=== PATIENT | male | born 1960 | race Caucasian/White ===

== ENCOUNTER 2023-07-02 14:21 | Emergency (ER) | payer OTHER, SELFPAY ==
[2023-07-02 14:26] VITALS: BP 128/71
[2023-07-02 14:39] LABS: % Basophils 0.4 % (0-2); % Eosinophils 2.3 % (0-6); % Immature Granulocytes 0.2 % (0-0.5); % Lymphocytes 31.5 % (20.5-51.1); % Monocytes 7.4 % (1.7-9.3); % Neutrophils 58.2 % (42.2-75.2); Absolute Eosinophils 0.1 10^3/uL (0-0.7); Absolute Lymphocytes 1.5 10^3/uL (1.2-3.4); Absolute Monocytes 0.4 10^3/uL (0.1-0.6); Absolute Neutrophils 2.7 10^3/uL (1.4-6.5); Hematocrit 41.8 % (39.0-52.0); Hemoglobin 15.1 g/dL (13.0-18.0); Mean Corp Hgb Conc. 36.1 g/dL (33.0-37.0); Mean Corpuscular Volume 82.9 fL (80.0-94.0); Nucleated Red Blood Cells % 0 % (-); Platelet Count 169 10^3/uL (130-400); Red Blood Cell Count 5.04 10^6/uL (4.70-6.10); Red Cell Dist. Width 12.3 % (11.5-14.5); White Blood Cell Count 4.7 10^3/uL (4.8-10.8)
[2023-07-02 14:52] LABS: ALT (SGPT) 33 U/L (0-50); AST (SGOT) 29 U/L (17-59); Albumin 4.3 g/dl (3.5-5.0); Alkaline Phosphatase 68 U/L (38-126); Blood Urea Nitrogen 23 mg/dl (9-20); Calcium 9.2 mg/dl (8.4-10.2); Carbon Dioxide 27 mmol/L (22-30); Chloride 102 mmol/L (98-107); Glucose 150 mg/dl (70-99); Sodium 136 mmol/L (135-145); Total Bilirubin 0.7 mg/dl (0.2-1.3); eGFR > 60.00
[2023-07-02 15:04] LABS: Troponin I < 0.012 ng/ml
--- NOTE | 2023-07-02 15:49 | ED.GENMED ---
History of Present Illness
General
Chief Complaint: Chest Problem
Time Seen by Provider: 07/02/23 15:34
Travel History
Have you had any contact with someone who has COVID-19?: No
Do you have any symptoms of coronavirus? Fever > 100 degrees, chills, cough, shortness of breath, sore throat, loss of taste or smell, muscle aches, or headache?: No
History of Present Illness
History of Present Illness:
62-year-old male with history of igr-nsraydr-ralxlefge diabetes admission presents to the emergency department for evaluation of intermittent left-sided chest tightness radiating to the left arm for 5 days. He states he notices the symptoms more at
nighttime however the symptoms do appear to be random and unprovoked. No clear exertional or positional component to the pain is nonpleuritic. No pain currently. Denies any fever, chills, or sweats. No coughing.
Past History
Past History
ED Past Medical History: Cancer (Non-Hodgkin's lymphoma), NIDDM and Other (Neuropathy both lower extremities)
ED Past Surgical History: Other (sinus surgery)
Social History
Tobacco: Former smoker
Alcohol: None
Drug: None
Personal:
Living: with family
Employment: Employed (sales)
Review of Systems
Review of Systems
Allergies reviewed?: Yes
All Other Systems: ROS reviewed and negative except as documented in HPI and ROS
Phy Exam
Physical Exam
Physical Exam:
GEN: Well appearing, NAD, WDWN
HEENT: Oral mucosa moist, no scleral icterus
Cardiac: Regular rate and rhythm, no murmurs
Lung: No respiratory distress, no tachypnea, lungs clear to auscultation bilaterally
MSK: No gross deformity or injuries
Skin: Good color, no pallor or jaundice, no rashes
Neuro: AO x3, moves all extremities freely
Psych: Calm, cooperative
Course
Orders/Labs/Results
Orders:
Orders
07/02/23 14:22
ECG [Electrocardiogram (*1)] Urgent
Reason for Study: Chest Pain
EKG- Treatment ONCE
07/02/23 14:32
Complete Blood Count/With Diff Urgent
Comprehensive Metabolic Panel Urgent
Troponin I Urgent
07/02/23 15:50
CR Chest - 2 Views Urgent
Comment:
Reason For Exam: chest pain
Abnormal Lab Results
07/02/23
14:32
WBC 4.7 L 10^3/uL
(4.8-10.8)
BUN 23 H mg/dl
(9-20)
Glucose 150 H mg/dl
(70-99)
07/02/23 14:32
07/02/23 14:32
Vital Signs
Initial and Last Documented VS:
Initial Vital Signs
Temp Pulse Resp BP Pulse Ox
98.0 F 78 16 128/71 98
07/02/23 14:26 07/02/23 14:26 07/02/23 14:26 07/02/23 14:26 07/02/23 14:26
Last Documented Vital Signs
Temp Pulse Resp BP Pulse Ox
98.0 F 73 18 118/88 95
07/02/23 14:26 07/02/23 16:20 07/02/23 16:20 07/02/23 16:20 07/02/23 16:20
MDM/Problems Addressed
MDM/Problems Addressed:
Episodic nature of the pain with no exertional component is reassuring and not likely indicative of ACS. Doubt pulmonary embolism given that he is asymptomatic and not hypoxic currently. Recommend outpatient primary care follow-up if symptoms
persist
Comment
Comment:
EKG independently interpreted by me shows a normal sinus rhythm at a rate of [address] changes concerning for ischemia, QTc of 423
Chest x-ray independently turbid by me is negative for acute cardiopulmonary disease
*Critical Care Note
Total Time (30-74mins, 75-104mins- exclusive of procedures): Not Applicable
ED Attending Note
-
Portions of this chart may have been created with voice recognition software.� Occasional wrong word or��sound alike� substitutions may have occurred due to the inherent limitations of voice recognition software.
Discharge Plan
Departure
Patient Disposition: Home (Routine Discharge)
Date of Disposition: 07/02/23
Time of Disposition: 16:13
Patient with high blood pressure during this ER visit?: No
Discharge Problem:
Atypical chest pain
Instructions: Chest Pain PCP Follow Up
Prescriptions:
No Action
glipizide 2.5 MG tablet extended release 24hr
2.5 mg PO QPM
docusate sodium 100 MG capsule
100 mg PO BIDPRN PRN (Reason: constipation) 50 Days Qty: 100 0RF
sennosides [senna] 1 TABLET tablet
1 tab PO DAILY 50 Days Qty: 50 0RF
acetaminophen 325 MG tablet
650 mg PO Q4HPRN PRN (Reason: mild pain/CANO/temp> 100.4F) 0RF
tizanidine 2 MG tablet
2 mg PO TIDPRN PRN (Reason: Spasms/pain) 10 Days Qty: 30 0RF
polyethylene glycol 3350 17 GRAMS powder in packet
17 grams PO DAILY 30 Days Qty: 30 0RF
lidocaine 1 PATCH adhesive patch,medicated
1 patch topical DAILY 30 Days Qty: 30 0RF
Rx Instructions:
ON FOR 12 HOURS, OFF FOR 12 HOURS. Apply to mid-low back. If not covered, provide Salonpas
gabapentin 100 MG capsule
100 mg PO HS 30 Days Qty: 30 0RF
oxycodone 10 MG tablet
10 mg PO Q4HPRN PRN (Reason: moderate pain) 20 Days Qty: 60 0RF
oxycodone [OxyContin] 20 MG tablet,oral only,ext.rel.12 hr
20 mg PO Q12 30 Days Qty: 60 0RF
levofloxacin 750 mg tablet
750 mg PO DAILY Qty: 7 0RF
metronidazole 500 mg tablet
500 mg PO TID Qty: 21 0RF
Referrals:
Nikolay Gonzalez, [Family Provider] -
Interventions
Interventions:
*Risk Screen - Suicide Last Done: 07/02/23 15:31
*General Assessment Last Done: 07/02/23 16:23
*Neglect/Abuse Screening Last Done: 07/02/23 15:31
ED- Fall Risk Assessment Last Done: 07/02/23 16:23
*ED COVID-19 Vaccine History Last Done: 07/02/23 14:26
*Nursing Disposition Last Done: 07/02/23 16:23
ED- Cardiac Assessment Last Done: 07/02/23 16:20
ED- Pulmonary Assessment Last Done: 07/02/23 16:20
Discharge Date and Time
Discharge Date/Time: 07/02/23 16:24
[2023-07-02 16:20] VITALS: BP 118/88
== END 2023-07-02 16:24 | disposition home or self-care (01) ==
LOC: EMR 14:21
PROVIDERS: Emergency Medicine; EMERGENCY PHYSICIAN Emergency Medicine; FAMILY PHYSICIAN Family Medicine
DX: R07.89 Other chest pain (principal); M79.602 Pain in left arm; E11.40 Type 2 diabetes mellitus with diabetic neuropathy, unspecified; Z85.72 Personal history of non-Hodgkin lymphomas; Z87.891 Personal history of nicotine dependence; Z91.048 Other nonmedicinal substance allergy status
CPT/HCPCS: 99283; 71046; 80053; 84484; 85025; 93005

== ENCOUNTER → 2023-08-22 08:12 | Outpatient (REF) | payer OTHER, SELFPAY | LOC: RCS 08:12 | PROVIDERS: ATTENDING PHYSICIAN Internal Medicine Cardiovascular Disease; FAMILY PHYSICIAN Family Medicine | DX: R07.2 Precordial pain (principal) | CPT/HCPCS: 93017; 93350 ==

== ENCOUNTER → 2024-04-23 10:40 | Outpatient (REF) | payer OTHER, SELFPAY | LOC: RCS 10:40 | PROVIDERS: ATTENDING PHYSICIAN Student in an Organized Health Care Education/Training Program; FAMILY PHYSICIAN Family Medicine | DX: E78.5 Hyperlipidemia, unspecified (principal); R07.89 Other chest pain; I25.10 Atherosclerotic heart disease of native coronary artery without angina pectoris | CPT/HCPCS: 93017; 93350 ==